=== PATIENT | male | born 1955 | race Caucasian/White ===

== ENCOUNTER 2017-03-25 09:33 | Day surgery (SDC) | payer MEDICARE ==
[~2017-03-25] VITALS: Ht 180.3 cm; Wt 110.0 kg
[2017-03-25] MEDS ORDERED: SODIUM BICARBONATE 4.2%, 5ML ONE (09:57)
[2017-03-25] MEDS ORDERED: LIDOCAINE 1%, 20ML ONE (09:57)
[2017-03-25] MEDS ORDERED: SODIUM CHLORIDE 0.9% 1,000 ML IV SCH (10:07)
[2017-03-25 10:09] VITALS: BP 162/97
[2017-03-25] MEDS ORDERED: METO50TA82 PO (10:17)
[2017-03-25] MEDS ORDERED: OXYC15TA PO (10:17)
[2017-03-25] MEDS ORDERED: GABA300C10 PO (10:17)
[2017-03-25] MEDS ORDERED: MORP30TA3 PO (10:17)
[2017-03-25] MEDS ORDERED: BACL20TA PO (10:17)
[2017-03-25] MEDS ORDERED: FENTANYL PF 100 MCG/2ML ONE (11:14)
[2017-03-25] MEDS ORDERED: NALOXONE 1 MG/ML, 2ML ONE (11:14)
[2017-03-25] MEDS ORDERED: MIDAZOLAM 1 MG/ML, 5ML ONE (11:14)
[2017-03-25] MEDS ORDERED: FLUMAZENIL 0.1 MG/1 ML, 5ML ONE (11:15)
== END 2017-03-25 12:45 | disposition home or self-care (01) ==
LOC: OUT 09:33
PROVIDERS: ATTEND Internal Medicine Hematology & Oncology
DX: R59.0 Localized enlarged lymph nodes (principal); Z85.72 Personal history of non-Hodgkin lymphomas; I10 Essential (primary) hypertension; F17.200 Nicotine dependence, unspecified, uncomplicated; Z88.0 Allergy status to penicillin; J43.9 Emphysema, unspecified
CPT/HCPCS: 38505; 76942; 88305; 99156; 99157; J2250; J3010; J3490; J2310

== ENCOUNTER → 2017-06-26 | Outpatient (CLI) | payer MEDICARE ==
[~2017-06-26] MED LIST: BACL20TA PO; GABA300C10 PO; METO50TA82 PO; MORP30TA3 PO; OMNIPAQUE 350 MG/ML, 100ML BOTTLE ONE; OXYC15TA PO
== END | disposition home or self-care (01) ==
LOC: CFH 09:46
PROVIDERS: ATTEND Internal Medicine Hematology & Oncology
DX: R59.0 Localized enlarged lymph nodes (principal); Z85.72 Personal history of non-Hodgkin lymphomas
CPT/HCPCS: 70491; Q9967